=== PATIENT | female | born 1975 | race Caucasian/White ===

== ENCOUNTER → 2017-09-06 | Outpatient (RCR) | payer OTHER ==
--- NOTE | 2017-06-08 16:32 | PT INITIAL EVALUATION ---
MEDICAL DIAGNOSIS: Rheumatoid Arthritis, Cervical Pain TREATMENT DIAGNOSIS: Rheumatoid Arthritis, Cervical Pain, Right Arm Pain and Weakness DATE OF ONSET: 04/08/17 SUBJECTIVE: Denisse is a 41 year-old female presenting to physical therapy with a recent progressive 2 month onset of R arm pain and weakness as well as progressive decreased cervical ROM. Pt reports that her pain seems to radiate down her R arm to the level of the wrist starting from the shoulder and medial elbow. Pt rates pain currently at 2/10, but claims that it gets worse throughout the day and at mid day after use is about 5/10 with decreased strength in that arm so that she cannot picking supervisor objects. Pt denies any neck pain , but reports stiffness that has happed slowly likely related to rheumatoid arthritis condition. Pt reports that the pain in the R arm is always present at a minimal level. In addition pt reports that she is also having some LE dysfunction L>R related to an unknown condition resulting in small nodule formation with associated inflammation in the surrounding area. These nodules are present throughout the distal L>R LE, abdomen B, L breast, and recently developing in the R forearm and R breast with associated sharp pains throughout. Condition is currently unknown for a cause but is being investigated by several specializing physicians. REHAB PROBLEM LIST: Increased Pain Decreased ROM Decreased Strength Decreased Endurance Decreased Function Decreased ADL's Decreased Mobility Decreased Gait PREVIOUS MEDICAL HISTORY: See EMR, RA OBJECTIVE: Pt has B ulnar drift of fingers with swollen joints. B LE are swollen and shiny. Posture: Pt has mild thoracic kyphosis with forward head. ROM: Cervical ROM: ext: full, flexion: moderate restrictions, L rot: 55 degrees , R rot: 40 degrees, L SB: 14 degrees, R SB: 17 degrees. All motions without pain. Shoulder ROM: B flexion/ ext/abd: WFL without pain, B ER: full without pain, IR : R L2 level with pain in anterior shoulder, L T7 without pain. Elbow ROM: WFL without pain flexion and ext Wrist ROM: flexion: B 20 degrees, ext: L 60 degrees, R 30 degrees with pain, ulnar deviation: full without pain, radial: severe limitations B with tightness on the ulnar aspect. Strength: Shoulder MMT: Flexion/Ext: B 5/5 without pain, IR: B 5/5 without pain , ER: L 4/5, R 3+/5 with pain in anterior shoulder, abd: B 4/5. Elbow MMT: flexion: B 5/5, ext: R 4/5, L 4+/5 all without pain Power Plant Manager strength: L 5#, R 5# 3 Finger pinch director of employer services: L 8#, R 6# Palpation: Pt is tender to palpation on the ulnar side of the posterior forearm between the elbow and wrist. Pt is also tender to palpation in the distal attachment of the infraspinatus. Special Tests: Neer's: B (+), Horizontal adduction: (+) R, Drop arm (-), Empty Can (+) B Gait: Pt ambulates with SPC with a slow gait pattern, decreased stride length and wide unsteady JOSUÉ. ASSESSMENT: Pt shows signs and symptoms consistent with R infraspinatus tendinopathy with associated shoulder impingement. Physical therapy is indicated to correct the above listed deficits as well as improve pt function with ADL's. PCP was also contacted for referral to PT to address other pressing deficits related to Denisse's unknown illness including contracture, generalized weakness, pain and instability with gait. Short Term Goals In 3 weeks pt will centralize pain in the R UE to the shoulder only for improved functional strength with ADL's. In 3 weeks pt will be able to perform equal ROM in B shoulders for improved functional ability to perform ADL's. In 6 weeks pt will improve R shoulder strength to equal that of the L side resulting in increased function with ADL's. Patient's Goals Decrease pain in R arm PLAN: Patient to be seen for Manual Therapy/STM/MET Strengthening/condition Ice/Heat Range of Motion Spinal Stabilization Ultrasound Stretching Iontophoresis Neuromuscular Re-ed Closed Chain Program Electrical Stim Posture/Body mechanics Biofeedback Home Exercise Program Mech./Manual Traction Therapeutic Activities 3x/Week for 6 Weeks If you have any questions, comments, or concerns about this report or plan, please contact me at . Thank you, Samia Laguerre, PT, DPT, CLT KHURRAM
--- NOTE | 2017-06-21 17:26 | PT PLAN OF CARE ---
Physician: Phil Cherry DO Patient is being seen: 3x/Week Therapist: Samia Laguerre, PT, DPT, CLT Medical Diagnosis: Rheumatoid Arthritis, Cervical Pain Treatment Diagnosis: Rheumatoid Arthritis, Cervical Pain, Right Arm Pain and Weakness Date of Onset: 04/08/17 Date of Initial Evaluation: 06/08/17 Date patient was last seen: 06/21/17 Number of treatments: 5 Number of cancellations/No shows: 1 INTERVENTIONS: Manual Therapy/STM/MET Strengthening/condition Ice/Heat Range of Motion Spinal Stabilization Ultrasound Stretching Iontophoresis Neuromuscular Re-ed Closed Chain Program Electrical Stim Posture/Body mechanics Biofeedback Home Exercise Program Mech./Manual Traction Therapeutic Activities GOALS: In 3 weeks pt will centralize pain in the R UE to the shoulder only for improved functional strength with ADL's. In 3 weeks pt abe be able to perform equal ROM in B shoulders for improved functional ability to perform ADL's. In 6 weeks pt will improve R shoulder strength to equal that of the L side resulting in increased function with ADL's. PATIENT'S GOAL: Decrease pain in R arm Status of Patient's Goals: 3/3 MET Patient Compliance: Good Prognosis: Fair Reasons for continuing therapy: Pt shows good progression with her R shoulder with full ROM and improved strength with resistance in all motions. Pt is to discharge from PT for her shoulder at this time with intention to focus more on her LE loss of motion and generalized weakness which seems to be worsening. Pt is to continue with her HEP independently for her shoulder at this time having met 3/3 goals. Pt to be re-evaluated at next visit for other conditions. Posture: Pt has mild thoracic kyphosis with forward head. ROM: Cervical ROM: ext: full, flexion: moderate restrictions, L rot: 55 degrees , R rot: 40 degrees, L SB: 14 degrees, R SB: 17 degrees. All motions without pain. Shoulder ROM: B flexion/ ext/abd: WFL without pain, B ER: full without pain, IR: B T5 without pain. Elbow ROM: WFL without pain flexion and ext Wrist ROM: flexion: B 50 degrees, ext: L 40 degrees, R 30 degrees without pain, ulnar deviation: full without pain, radial: severe limitations B with tightness on the ulnar aspect. Strength: Shoulder MMT: all motions 5/5 without pain Crane Manager strength: L 15#, R 16# 3 Finger pinch oxyacetylene burner: B 7# Palpation: Pt is tender to palpation on the ulnar side of the posterior forearm between the elbow and wrist. Special Tests: Neer's: B (-), Horizontal adduction: (-) R, Drop arm (-), Empty Can (-) B If you have any questions or concerns, please feel free to contact me at . Thank you, Samia Laguerre, PT, DPT, CLT MTDD
--- NOTE | 2017-06-23 18:09 | PT INITIAL EVALUATION ---
MEDICAL DIAGNOSIS: Sclerosis of the skin, Generalized Weakness, Lower Extremity Edema/Swelling, Loss of Movement TREATMENT DIAGNOSIS: Sclerosis of the skin, Generalized Weakness, Lower Extremity Edema/Swelling, Loss of Movement DATE OF ONSET: 04/08/17 SUBJECTIVE: Denisse is a 41 year-old female presenting to physical therapy with LE dysfunction L>R related to an unknown etiology resulting in nodule formation with associated inflammation in the surrounding area. These nodules are present throughout the distal L>R LE, abdomen B, L breast, and recently developing in the R forearm and R breast with associated sharp pains throughout. Condition is currently unknown for a cause, but is being investigated by several specializing physicians. Pt reports that the nodules have developed at different times the oldest being on the anterior R leg starting 4 weeks ago and then newest being in the proximal R hamstring, R arm, and B breasts. Pt reports that when the nodules first develop they are super painful and firm and progress with skin changes, swelling and redness, and hypersensitivity. REHAB PROBLEM LIST: Increased Pain Decreased ROM Decreased Strength Decreased Endurance Decreased Function Decreased ADL's Decreased Mobility Decreased Gait PREVIOUS MEDICAL HISTORY: See EMR, RA OBJECTIVE: Pt has B ulnar drift of fingers with swollen joints. B LE are swollen and shiny throughout with few areas of "nodules" on the L LE with peau d 'orange appearance and redness. Posture: Pt has mild thoracic kyphosis with forward head. ROM: Ankle ROM (R,L): DF: 0, lacking 5, PF: 21, 15, Eversion: 13, 9, Inversion: 22,15. Knee ROM (R,L): Flexion: 145, 123, Ext: 0, lacking 5 degrees. Strength: Shoulder MMT: Flexion/Ext: B 5/5 without pain, IR: B 5/5 without pain , ER: L 4/5, R 3+/5 with pain in anterior shoulder, abd: B 4/5. Elbow MMT: flexion: B 5/5, ext: R 4/5, L 4+/5 all without pain Supervisor Home Energy Consultant strength: L 5#, R 5# 3 Finger pinch professor of architecture: L 8#, R 6# All LE MMT not tested at this time secondary to hypersensitivity with pressure but all active against gravity, 3+, or greater. Palpation: Pt is tender to palpation with hypersensitivity throughout the lower limb B into the foot and ankle. Special Tests: Stemmer's Sign (-) B, decreased myofascial mobility on B distal LE. Gait: Pt ambulates with SPC with a slow gait pattern and decreased stride length. Other Objective Findings: LE circumference (R,L): Below knee: 33.5cm, 34cm, calf : 37.5cm, 41.5cm, above malleoli: 26.7cm, 26.5cm, figure 8: 53.5cm, 52.5cm, Dorsum of foot: 22.5, 22.5cm, first digit: 7.2cm, 7.0cm. ASSESSMENT: Pt shows signs and symptoms of generalized edema with tissue fibrosis and hypersensitivity resulting in decreased mobility. Physical therapy is indicated to address the above listed deficits as well as improve pt functional mobility with ADL's. Short Term Goals In 6 weeks pt will reduce circumference of B LE to 80% of current circumference for improved functional mobility with ADL's. In 6 weeks pt will improve ankle mobility to WFL for improved gait and performance of ADL's. In 6 weeks pt will increase L knee ROM to equal to that of the contralateral limb for improved functional performance of ADL's. Patient's Goals Improve ROM and function of B LE. PLAN: Patient to be seen for Manual Therapy/STM/MET Strengthening/condition Ice/Heat Range of Motion Spinal Stabilization Ultrasound Stretching Iontophoresis Neuromuscular Re-ed Closed Chain Program Electrical Stim Posture/Body mechanics Biofeedback Home Exercise Program Mech./Manual Traction Therapeutic Activities 3x/Week for 6 Weeks If you have any questions, comments, or concerns about this report or plan, please contact me at . Thank you, Samia Laguerre, PT, DPT, CLT MTDD
--- NOTE | 2017-08-02 15:15 | PT PLAN OF CARE ---
Physician: Phil Cherry DO Patient is being seen: 3x/week Therapist: Samia Laguerre, PT, DPT, CLT Medical Diagnosis: Rheumatoid Arthritis, Cervical Pain Treatment Diagnosis: Rheumatoid Arthritis, Cervical Pain, Right Arm Pain and Weakness Date of Onset: 04/08/17 Date of Initial Evaluation: 06/08/17 Date patient was last seen: 08/02/17 Number of treatments: 15 Number of cancellations/No shows: 1 INTERVENTIONS: Manual Therapy/STM/MET Strengthening/condition Ice/Heat Range of Motion Spinal Stabilization Ultrasound Stretching Iontophoresis Neuromuscular Re-ed Closed Chain Program Electrical Stim Posture/Body mechanics Biofeedback Home Exercise Program Mech./Manual Traction Therapeutic Activities GOALS: In 6 weeks pt will reduce circumference of B LE to 90% of current circumference for improved functional mobility with ADL's. In 6 weeks pt will improve ankle mobility to WFL for improved gait and performance of ADL's. In 6 weeks pt will increase L knee ROM to equal to that of the contralateral limb for improved functional performance of ADL's. PATIENT'S GOAL: Improve ROM and function of B LE. Status of Patient's Goals: In Progress Patient Compliance: Good Prognosis: Fair Reasons for continuing therapy: Denisse shows good improvements in tissue functional mobility. Ankle ROM shows improvement overall reaching normal limits in dorsiflexion. LE circumference shows decreases on the L>R with recent inflammation on the R, but improved sensitivity and tissue mobility B. Skin texture and color are near normal on the L, but have increased redness on the R medial aspect. Posture: Pt has mild thoracic kyphosis with forward head. ROM: Ankle ROM (R,L): DF: 10, 10, PF: 22, 24, Eversion: 13, 15, Inversion: 36, 23. Knee ROM (R,L): Flexion: 145, 123, Ext: 0, lacking 5 degrees. Strength: Shoulder MMT: Flexion/Ext: B 5/5 without pain, IR: B 5/5 without pain , ER: L 4/5, R 3+/5 with pain in anterior shoulder, abd: B 4/5. Elbow MMT: flexion: B 5/5, ext: R 4/5, L 4+/5 all without pain Oxyacetylene Cutter strength: L 5#, R 5# 3 Finger pinch slubber machine operator: L 8#, R 6# All LE MMT not tested at this time secondary to hypersensitivity with pressure but all active against gravity, 3+, or greater. Palpation: Pt is tender to palpation with hypersensitivity throughout the lower limb B into the foot and ankle. Special Tests: Stemmer's Sign (-) B, decreased myofascial mobility on B distal LE. Gait: Pt ambulates with SPC with a slow gait pattern and decreased stride length. Other Objective Findings: LE circumference (R,L): Below knee: 33.7cm, 33.7cm, calf: 37.5cm, 40cm, above malleoli: 25.5cm, 25.5cm, figure 8: 51.5cm, 50.8cm, Dorsum of foot: 22.3, 22.0cm, first digit: 7.2cm, 6.8cm. If you have any questions or concerns, please feel free to contact me at [phone]. Thank you, Samia Laguerre, PT, DPT, HERMINIAT KHURRAM
--- NOTE | 2017-09-01 14:46 | PT PLAN OF CARE ---
Physician: Phil Cherry DO Patient is being seen: 3x/Week Therapist: Samia Laguerre, PT, DPT, CLT Medical Diagnosis: Rheumatoid Arthritis, Cervical Pain Treatment Diagnosis: Rheumatoid Arthritis, Cervical Pain, Right Arm Pain and Weakness Date of Onset: 04/08/17 Date of Initial Evaluation: 06/08/17 Date patient was last seen: 09/01/17 Number of treatments: 26 Number of cancellations/No shows: 3 INTERVENTIONS: Manual Therapy/STM/MET Strengthening/condition Ice/Heat Range of Motion Spinal Stabilization Ultrasound Stretching Iontophoresis Neuromuscular Re-ed Closed Chain Program Electrical Stim Posture/Body mechanics Biofeedback Home Exercise Program Mech./Manual Traction Therapeutic Activities GOALS: In 6 weeks pt will reduce circumference of B LE to 90% of current circumference for improved functional mobility with ADL's. In 6 weeks pt will improve ankle mobility to WFL for improved gait and performance of ADL's. In 6 weeks pt will increase L knee ROM to equal to that of the contralateral limb for improved functional performance of ADL's. PATIENT'S GOAL: Improve ROM and function of B LE. Status of Patient's Goals: In Progress Patient Compliance: Good Prognosis: Fair Reasons for continuing therapy: Denisse shows good progress with reduced limb circumference, as well as increased ankle ROM and mobility. Pt is now able to ambulate up and down stairs without difficulty or pain. She also shows progress with strengthening of the muscles in the newly available ROM. Lingering swelling and pain remain in the posterior R LE with adhesions and fibrosis remaining B with decreased soft tissue mobility. Further, PT is indicated to continue progress with return to full function. Posture: Pt has mild thoracic kyphosis with forward head. ROM: Ankle ROM (R,L): DF: 15, 15, PF: 45, 50, Eversion: 15, 15, Inversion: 36, 23. Knee ROM (R,L): Flexion: 145, 123, Ext: 0, lacking 5 degrees. Strength: Shoulder MMT: Flexion/Ext: B 5/5 without pain, IR: B 5/5 without pain , ER: L 4/5, R 3+/5 with pain in anterior shoulder, abd: B 4/5. Elbow MMT: flexion: B 5/5, ext: R 4/5, L 4+/5 all without pain Inverform Machine Operator strength: L 5#, R 5# 3 Finger pinch student services representative: L 8#, R 6# All LE MMT not tested at this time secondary to hypersensitivity with pressure but all active against gravity, 3+, or greater. Palpation: Pt is tender to palpation with hypersensitivity throughout the lower limb B into the foot and ankle. Special Tests: Stemmer's Sign (-) B, decreased myofascial mobility on B distal LE. Other Objective Findings: LE circumference (R,L): Below knee: 33.7cm, 33.7cm, calf: 37.5cm, 40cm, above malleoli: 25.5cm, 25.5cm, figure 8: 51.5cm, 50.8cm, Dorsum of foot: 22.3, 22.0cm, first digit: 7.2cm, 6.8cm. If you have any questions or concerns, please feel free to contact me at . Thank you, Samia Laguerre, PT, DPT, CLT KHURRAM
[~2017-09-06] MED LIST: ALPH50CA4 PO; ARGI500C9 PO; ASP325 PO; ASPI-1441 PO; DIPH-1 PO; FURO-45 PO; GABA-549 PO; IBUP600T22 PO; LEFL20TA6 PO; LOPE1LIQ49 PO; LOPE2CAP88 PO; LOR5/325 PO; LORA-1455 PO; MELO-207 PO; META-1 PO; META400T PO; METH2.5T43 PO; MIRT-22 PO; NAP375 PO; NAP500; ORP100 PO; POTA20TA10 PO; TRAM200T2 PO; VENL37.594 PO; VENL75CA4 PO
== END ==
LOC: PT 06-08 09:33
PROVIDERS: ATTEND Internal Medicine
DX: M05.79 Rheumatoid arthritis with rheumatoid factor of multiple sites without organ or systems involvement (principal); M54.2 Cervicalgia; M79.601 Pain in right arm; M62.81 Muscle weakness (generalized); R22.2 Localized swelling, mass and lump, trunk; R22.31 Localized swelling, mass and lump, right upper limb; N63.10 Unspecified lump in the right breast, unspecified quadrant
CPT/HCPCS: 97162

== ENCOUNTER 2017-10-17 09:15 | Outpatient (RCR) | payer OTHER ==
--- NOTE | 2017-09-08 15:15 | PT PLAN OF CARE ---
Physician: Phil Cherry DO Patient is being seen: 2-3x/Week Therapist: Samia Laguerre, PT, DPT, CLT Medical Diagnosis: Rheumatoid Arthritis, Cervical Pain Treatment Diagnosis: Rheumatoid Arthritis, Cervical Pain, Right Arm Pain and Weakness Date of Onset: 04/08/17 Date of Initial Evaluation: 06/08/17 Date patient was last seen: 09/08/17 Number of treatments: 28 Number of cancellations/No shows: 3 INTERVENTIONS: Manual Therapy/STM/MET Strengthening/condition Ice/Heat Range of Motion Spinal Stabilization Ultrasound Stretching Iontophoresis Neuromuscular Re-ed Closed Chain Program Electrical Stim Posture/Body mechanics Biofeedback Home Exercise Program Mech./Manual Traction Therapeutic Activities GOALS: In 6 weeks pt will reduce circumference of B LE to 90% of current circumference for improved functional mobility with ADL's. MET In 6 weeks pt will improve ankle mobility to WFL for improved gait and performance of ADL's. In Progress In 6 weeks pt will increase L knee ROM to equal to that of the contralateral limb for improved functional performance of ADL's. MET PATIENT'S GOAL: Improve ROM and function of B LE. Status of Patient's Goals: 2/3 MET Patient Compliance: Good Prognosis: Fair Reasons for continuing therapy: Denisse continues to show progress with gains in ankle ROM and strength. Circumferential reductions are evident throughout both LE with lingering swelling present in the R LE with recent inflammatory episode occurring. Hypersensitivity is no longer present in B legs with skin mobility progressively increasing B in the shins, ankles and feet. Lingering deficits include soft tissue restrictions into plantar flexion B and L inversion. Other soft tissue restrictions are present from skin fibrosis across B shins from inflammatory process. Further PT is indicated to make progress in these remaining areas. Functionally pt is now able to ambulate up and down stairs, as well a walk prolonged distances without any difficulty. Posture: Pt has mild thoracic kyphosis with forward head. ROM: Ankle ROM (R,L): DF: 15, 18, PF: 34, 40, Eversion: 15, 12, Inversion: 35, 17. Knee ROM (R,L): Flexion: 145, 140, Ext: 3, 1 Strength: Shoulder MMT: Flexion/Ext: B 5/5 without pain, IR: B 5/5 without pain , ER: L 4/5, R 3+/5 with pain in anterior shoulder, abd: B 4/5. Elbow MMT: flexion: B 5/5, ext: R 4/5, L 4+/5 all without pain Service Order Clerk strength: L 5#, R 5# 3 Finger pinch systematic theology professor: L 8#, R 6# LE MMT: Ankle: DF: B 5/5, PF: R 4/5, L 4-/5, Eversion: R 4/5, L 4+/5, Inversion : B 5/5 Special Tests: Stemmer's Sign (-) B, decreased myofascial mobility on B shins. Other Objective Findings: LE circumference (R,L): Below knee: 32.3cm, 33.5cm, calf: 40.2cm, 38.7cm, above malleoli: 25.5cm, 24.5cm, figure 8: 50.1cm, 48.7cm, Dorsum of foot: 21.6, 21.7cm, first digit: 7.0cm, 6.5cm. If you have any questions or concerns, please feel free to contact me at [phone]. Thank you, Samia Laguerre, PT, DPT, CLT MTDD
--- NOTE | 2017-10-17 11:50 | PT PLAN OF CARE ---
Physician: Phil Cherry DO Patient is being seen: 1x/Week Therapist: Samia Laguerre, PT, DPT, CLT Medical Diagnosis: Rheumatoid Arthritis, Cervical Pain Treatment Diagnosis: Rheumatoid Arthritis, Cervical Pain, Right Arm Pain and Weakness Date of Onset: 04/08/17 Date of Initial Evaluation: 06/08/17 Date patient was last seen: 10/17/17 Number of treatments: 34 Number of cancellations/No shows: 0 INTERVENTIONS: Manual Therapy/STM/MET Strengthening/condition Ice/Heat Range of Motion Spinal Stabilization Ultrasound Stretching Iontophoresis Neuromuscular Re-ed Closed Chain Program Electrical Stim Posture/Body mechanics Biofeedback Home Exercise Program Mech./Manual Traction Therapeutic Activities GOALS: In 6 weeks pt will reduce circumference of B LE to 90% of current circumference for improved functional mobility with ADL's. MET In 6 weeks pt will improve ankle mobility to WFL for improved gait and performance of ADL's. MET In 6 weeks pt will increase L knee ROM to equal to that of the contralateral limb for improved functional performance of ADL's. MET PATIENT'S GOAL: Improve ROM and function of B LE. Status of Patient's Goals: 3/3 MET Patient Compliance: Good Prognosis: Fair Reasons for discharge from therapy: Denisse is to discharge from physical therapy at this time secondary to completion of all of her functional goals. Pt has been instructed in maintenance of edema with self MLD treatment and is also currently independent in a home exercise program to maintain mobility and motion gains. Pt is to be evaluated further by the [facility] in [place] in December for further diagnosis and treatment of condition and is to follow up with PT if any changes occur between discharge and that time. Posture: Pt has mild thoracic kyphosis with forward head. ROM: Ankle ROM (R,L): DF: 25, 25, PF: 51, 50, Eversion: 16, 17, Inversion: 30, 33. Knee ROM (R,L): Flexion: 145, 140, Ext: 3, 1 Strength: Shoulder MMT: Flexion/Ext: B 5/5 without pain, IR: B 5/5 without pain , ER: L 4/5, R 3+/5 with pain in anterior shoulder, abd: B 4/5. Elbow MMT: flexion: B 5/5, ext: R 4/5, L 4+/5 all without pain Circulation Man strength: L 5#, R 5# 3 Finger pinch derrick worker: L 8#, R 6# LE MMT: Ankle: DF: B 5/5, PF: R 4/5, L 4-/5, Eversion: R 4/5, L 4+/5, Inversion : B 5/5 Special Tests: Stemmer's Sign (-) B, decreased myofascial mobility on B shins. Other Objective Findings: LE circumference (R,L): Below knee: 33.5cm, 33.0cm, calf: 39.5cm, 39cm, above malleoli: 24cm, 23.4cm, figure 8: 49.5cm, 48.2cm, Dorsum of foot: 21.0, 21.5cm, first digit: 7.0cm, 7.0cm. If you have any questions or concerns, please feel free to contact me at [phone]. Thank you, Samia Laguerre, PT, DPT, CLT TERRYD
== END 2017-10-17 15:02 | disposition home or self-care (01) ==
LOC: PT 09:15
PROVIDERS: ATTEND Internal Medicine
DX: M05.79 Rheumatoid arthritis with rheumatoid factor of multiple sites without organ or systems involvement (principal); M54.2 Cervicalgia; M79.601 Pain in right arm; M62.81 Muscle weakness (generalized); R22.2 Localized swelling, mass and lump, trunk; R22.31 Localized swelling, mass and lump, right upper limb; N63.10 Unspecified lump in the right breast, unspecified quadrant

== ENCOUNTER → 2017-11-09 | Outpatient (CLI) | payer OTHER ==
--- NOTE | 2017-11-10 09:04 | RADIOLOGY IMAGING REPORT ---
FACILITY: [facility] - [place] PATIENT NAME: DANAY SINGH : [id number] MR: [id number] V: [id number] EXAM DATE: ORDERING PHYSICIAN: KATHLEEN BOOTH TECHNOLOGIST: Yasmine Randhawa PROCEDURE:US LEFT BREAST COMPLETE COMPARISON:Prior Left breast Ultrasound of 04/27/17. INDICATIONS:Monitor L. breast lump, 6 MO F/U FINDINGS: Multiple cysts are again seen throughout the breasts. In the 12 o'clock position Left breast 1cm from the nipple there is an 8.6 x 9 x 7.1mm ovoid hypoechoic mass with acoustic shadowing. This mass was not demonstrated on the prior ultrasound. In the 1 o'clock position of the Left breast 2cm from the nipple there is a 7.4mm cyst with some internal echoes which may represent internal debris. There is no acoustic shadowing. The previously noted well circumscribed ovoid hypoechoic nodule in the 2 o'clock position of the Left breast 2cm from the nipple is unchanged in size and measures 6.2 x 6.8 x 5mm. There is however an additional hypoechoic nodule just anterior to the chest wall in the 2 o'clock position of the Left breast 4cm from the nipple measuring 6.1 x 6 x 6.2cm with some acoustic shadowing. There are several ovoid fatty replaced lymph nodes in the Left axilla with a benign appearing morphology. DIAGNOSTIC CATEGORY 4--SUSPICIOUS FOR MALIGNANCY. RECOMMENDATIONS: ULTRASOUND-GUIDED CORE BIOPSY: LEFT BREAST. IMPRESSION: BIRADS 4: Suspicious for malignancy Ultrasound guided core biopsy is recommended of the new hypoechoic nodule in the 12 o'clock position of the Left breast 1cm from the nipple and the new hypoechoic nodule 2 o'clock position of the Left breast just anterior to the chest wall 4cm from the nipple. Please see Today's Left breast mammogram for additional mammographic recommendations. Dictated by: Angela Queen M.D. on 11/09/2017 at 16:51 Transcribed by: CHANTALE on 11/10/2017 at 8:33 Approved by: Angela Queen M.D. on 11/10/2017 at 9:03 [facility]
--- NOTE | 2017-11-10 09:04 | RADIOLOGY IMAGING REPORT ---
FACILITY: [facility] [place] PATIENT NAME: DANAY SINGH : [id number] MR: [id number] V: [id number] EXAM DATE: ORDERING PHYSICIAN: KATHLEEN BOOTH TECHNOLOGIST: Smita Cruz PROCEDURE:LEFT DIGITAL DIAGNOSTIC MAMMOGRAM WITH CAD ASSISTED INTERPRETATION & 3D TOMOSYNTHESIS COMPARISON:Prior mammograms 04/27/17 & 07/23/08 INDICATIONS:Monitor L. breast lump, 6 MO F/U FINDINGS: Extremely dense heterogeneous fibroglandular tissue is seen throughout the Left breast. There are numerous scattered calcifications seen throughout the Left breast many appear to represent layering suggesting milk of calcium deposits. There is however a new tightly clustered collection of round calcifications in the upper outer quadrant of the Left breast in Zone 2. Given the interval accurance biopsy is recommended. The patient stated her hesitancy to try stereotactic breast biopsy due to chronic muscle spasm. It was undecided a hook wire localization with surgical excision would be the best approach. DIAGNOSTIC CATEGORY 4--SUSPICIOUS FOR MALIGNANCY. RECOMMENDATIONS: SURGICAL BIOPSY COORDINATED WITH MAMMOGRAM HOOKWIRE LOCALIZATION: LEFT BREAST. IMPRESSION: BIRADS 4: Suspicious for malignancy Surgical excision aided by med graphically guided needle hook wire localization of the new tightly clustered round calcifications in the upper outer quadrant of the Left breast Zone 2 recommend for further evaluation. Please see Today's Left breast Ultrasound which also recommends 2 Ultrasound guided biopsies of 2 new solid masses in the Left breast. Dictated by: Angela Queen M.D. on 11/09/2017 at 16:55 Transcribed by: CHANTALE on 11/10/2017 at 8:55 Approved by: Angela Queen M.D. on 11/10/2017 at 9:03 [facility]
== END ==
LOC: MAMO 07:43
PROVIDERS: ATTEND Surgery
DX: N60.02 Solitary cyst of left breast (principal); N63.21 Unspecified lump in the left breast, upper outer quadrant
CPT/HCPCS: 77061; 77065

== ENCOUNTER 2017-11-14 11:29 | Outpatient (RCR) | payer OTHER ==
[2017-11-14 12:37] LABS: INR 1.05
--- NOTE | 2017-11-16 10:44 | RADIOLOGY IMAGING REPORT ---
FACILITY: [facility] PATIENT NAME: DANAY SINGH : [id number] MR: [id number] V: [id number] EXAM DATE: ORDERING PHYSICIAN: KATHLEEN BOOTH TECHNOLOGIST: Rusty Edmonds PROCEDURE: ULTRASOUND GUIDED LEFT BREAST BIOPSY COMPARISON: None. INDICATIONS: NEW NODULES IN THE 12 AND 2 O'CLOCK POSITIONS OF THE LEFT BREAST. FINDINGS: Informed consent was obtained. The patient's Left breast was prepped and draped in the usual sterile fashion. Local anesthesia was accomplished with 1% lidocaine. 2 14 Gauge core biopsies were obtained through the hypoechoic nodule in the 12 o'clock position of the Left breast. The following 2 biopsies the nodule was barely perceptible. A biopsy clip was placed in the biopsy site. 2 14 Gauge core biopsies were then obtained through the hypoechoic nodule 2 o'clock position of the Left breast 4cm from the nipple. The following 2 biopsies this nodule was also barely perceptible. A biopsy clip was placed in the biopsy site. These samples were sent to Pathology for processing. The procedure was accomplished without apparent complication. IMPRESSION: 1. Successful sonographically guided 2 Left breast biopsies. Pathology results are pending. Dictated by: Angela Queen M.D. on 11/15/2017 at 17:34 Transcribed by: CHANTALE on 11/16/2017 at 8:54 Approved by: Angela Queen M.D. on 11/16/2017 at 10:43 [facility]
--- NOTE | 2017-11-16 10:44 | RADIOLOGY IMAGING REPORT ---
[facility] PATIENT NAME: DANAY SINGH : [id number] MR: [id number] V: [id number] EXAM DATE: [id number] ORDERING PHYSICIAN: KATHLEEN BOOTH TECHNOLOGIST: Smita Cruz PROCEDURE:LEFT DIGITAL DIAGNOSTIC MAMMOGRAM COMPARISON:Prior mammograms 11/09/17, 04/27/17, 07/23/08. INDICATIONS:FOR CLIP PLACEMENT POST 2 LEFT BREAST BIOPSIES. FINDINGS: Dense heterogeneous fibroglandular tissue is seen throughout the Left breast. There are 2 biopsy clips seen in the upper outer quadrant of the Left breast. No other interval changes are seen. Pathology results are pending for Today's 2 Left breast biopsies. IMPRESSION: 2 biopsy clips are seen in the upper outer quadrant of the Left breast from Today's Ultrasound guided breast biopsies. Pathology results are pending. Dictated by: Angela Queen M.D. on 11/15/2017 at 17:35 Transcribed by: CHANTALE on 11/16/2017 at 9:00 Approved by: Angela Queen M.D. on 11/16/2017 at 10:43 [facility]
[2017-11-22] MEDS ORDERED: MELO-207 PO (14:00)
== END 2017-11-15 18:00 | disposition home or self-care (01) ==
LOC: LAB 11:29 → US 11-15 18:00
PROVIDERS: ATTEND Surgery
DX: N63.20 Unspecified lump in the left breast, unspecified quadrant (principal); R92.8 Other abnormal and inconclusive findings on diagnostic imaging of breast
CPT/HCPCS: 19083; 36415; 77061; 77065; 85610; 88305; 88344

== ENCOUNTER 2017-11-30 00:30 | Day surgery (SDC) | payer OTHER ==
--- NOTE | 2017-11-29 09:31 | RADIOLOGY IMAGING REPORT ---
FAC[place]: [facility] [place] PATIENT NAME: Denisse Villasenor : 1975 MR: [id number] V: [id number] EXAM DATE: ORDERING PHYSICIAN: NOEL DOMINGUEZ TECHNOLOGIST: Location: [facility] - [place] Patient: eDnisse Villasenor : 1975 Visit/Account:[id number] Date of Sevice: 11/29/2017 Cervical spine with flexion/extension views, three views. HISTORY: Rheumatoid arthritis, anesthesia protocol. COMPARISON: None. Small marginal osteophytes and mild joint space narrowing are present in the atlantoaxial joint. No abnormal subluxation occurs during flexion and extension. Minimal loss of disc height is present at C2-3, C3-4, and C4-5. During flexion, the C4, C5, and C6 vertebral bodies each sublux anteriorly by 1-2 mm, probably degenerative. The posterior elements are unremarkable. No prevertebral soft tissue swelling. No acute fractures. No bony erosions are identified. IMPRESSION: Mild multilevel degenerative disc disease. Mild atlantoaxial osteoarthritis. Report Dictated By: Juanito Stewart MD at 11/29/2017 9:22 AM Report E-Signed By: Juanito Stewart MD at 11/29/2017 9:27 AM WSN:[email or web address]
[~2017-11-30] VITALS: Ht 162.6 cm; Wt 67.6 kg
[~2017-11-30 00:30] MED LIST changes: +ASPI-757 PO; +FOLI-68 PO; +MAGN100T5 PO; +[UNRECOGNIZED DRUG - CODE] PO
[2017-11-30] MEDS ORDERED: LIDOCAINE MPF 1% 5 ML VIAL ONE (11:05)
[2017-11-30 11:07] VITALS: BP 107/74
[2017-11-30] MEDS ORDERED: NORMOSOL R SOLN(*) 1000 ML BAG 1,000 ML IV PRN (11:30)
[2017-11-30] MEDS ORDERED: FAMOTIDINE 20 MG TAB PO ONE (11:30)
[2017-11-30] MEDS ORDERED: ceFAZolin(*) 1 GM VIAL 1 GM in NS(*) 0.9% 100 ML ADDVANT BAG 100 ML IVPB ONE (11:30)
[2017-11-30] MEDS ORDERED: MIDAZOLAM 2 MG/2 ML VIAL IVP PRN (11:30)
[2017-11-30] MEDS ORDERED: LIDOCAINE/SOD BICARB 8.4% SYR ID ONE (11:30)
[2017-11-30] MEDS ORDERED: ROPIVACAINE 0.5% 20 ML VIAL ONE (15:40)
[2017-11-30] MEDS ORDERED: fentaNYL CITR 100 MCG/2 ML AMP ONE ×2 (15:56→17:32)
--- NOTE | 2017-11-30 16:15 | RADIOLOGY IMAGING REPORT ---
FACILITY: [facility] - [place], [place] PATIENT NAME: DANAY SINGH : [id number] MR: [id number] V: [id number] EXAM DATE: [id number] ORDERING PHYSICIAN: KATHLEEN BOOTH TECHNOLOGIST: Smita Cruz PROCEDURE: NEEDLE LOCALIZATION LEFT BREAST COMPARISON: Mammogram 11/15/2017. INDICATIONS: Patient with indeterminate cluster microcalcifications Left breast. Localization for wire guided exc. FINDINGS: Prior to the exam, the risks and benefits of a mammogram technique wire localization Left breast calcifications was discussed with the patient and informed consent was obtained. The patient was placed at the mammogram unit, and CC and MLO images were obtained. The scan was prepped and draped in the normal sterile fashion. A grid was placed over the breast, in a CC position. Using grid coordinates, 1% lidocaine was locally injected at the target site for the calcifications. A 9cm needle was advanced in a craniocaudal direction overlying the calcifications. The image was then switched to a mediolateral image, which demonstrated that the needle was just short in a craniocaudal direction to the calcifications. The needle was therefore advanced approximately 2cm. Another mediolateral image was obtained, which demonstrated the needle was in good position with respect to the calcifications. A wire was then advanced, and the needle was removed. A post wire placement mediolateral and CC image demonstrated the wire was in good position with respect to the calcifications. The wire was then secured at the skin. IMPRESSION: Left breast wire localization of the calcifications using a mammogram and grid technique. There were no immediate post procedure complications. Dictated by: Salazar Koehler M.D. on 11/30/2017 at 14:56 Transcribed by: CHANTALE on 11/30/2017 at 16:05 Approved by: Salazar Koehler M.D. on 11/30/2017 at 16:13 [facility]
[2017-11-30] MEDS ORDERED: OXYC-854 PO (17:13)
[2017-11-30] MEDS ORDERED: DOCU-416 PO (17:13)
[2017-11-30] MEDS ORDERED: ONDANSETRON 4 MG/2 ML VIAL ONE ×2 (17:17→17:27)
--- NOTE | 2017-11-30 17:21 | Short(Outpt) Discharge Summary ---
Discharge Summary Reason for Hosp/Final Diag: (1) Microcalcification of left breast on mammogram Status: Chronic Hospital Course & Plan: Left breast wire-guided lesion excision completed without problems. Departure Discharge to: Home, Self Care Discharge Instructions Home Meds Active Scripts Docusate Sodium (COLACE) 100 Mg Capsule, 1 CAP PO BID, #30 CAP 0 Refills TAKE WITH A FULL GLASS OF WATER Prov:KATHLEEN BOOTH MD 11/30/17 Oxycodone Hcl/Acet 5/325 Mg (ENDOCET 5-325 TABLET) 1 Each Tablet, 1-2 TAB PO Q4H Y for PAIN, #20 TAB 0 Refills Prov:KATHLEEN BOOTH MD 11/30/17 Meloxicam (MELOXICAM) 15 Mg Tablet, 15 MG PO QDAY Y for PAIN, #90 TAB 1 Refill Prov:KATHLEEN BOOTH MD 11/22/17 Gabapentin (GABAPENTIN) 300 Mg Capsule, 1 CAP PO TID, #270 CAPSULE 1 Refill Prov:BO CENTENO MD 10/13/17 Mirtazapine (MIRTAZAPINE) 15 Mg Tablet, 15 MG PO QHS, #90 TAB 1 Refill Prov:BO CENTENO MD 07/11/17 Venlafaxine Hcl (VENLAFAXINE HCL ER) 75 Mg Cap.er.24h, 75 MG PO QDAY, #90 TAB 1 Refill Prov:BO CENTENO MD 06/15/17 Reported Medications Magnesium Glycinate (MAG GLYCINATE) 100 Mg Tablet, 400 MG PO BID 11/28/17 Folic Acid (FOLIC ACID) 1 Mg Tablet, 1 MG PO QDAY, TAB 11/28/17 Metaxalone (Metaxalone) 400 Mg Tablet, 1 TAB PO BID 11/28/17 Aspirin (ASPIRIN) 325 Mg Tablet, 325 MG PO QDAY, TAB 11/24/17 Methotrexate Sodium (METHOTREXATE) 2.5 Mg Tablet, 15 MG PO QWEEK 07/05/17 Discontinued Reported Medications Magnesium Gluconate (MAGNESIUM GLUCONATE) 27 Mg Tablet, 27 MG PO QDAY 11/24/17 Folic Acid (FOLIC ACID) Unknown Strength Tablet, PO QDAY, TAB 11/24/17 Discontinued Scripts Metaxalone (Metaxalone) 400 Mg Tablet, 400 MG PO BID Y for MUSCLE SPASMS, #90 TAB 11 Refills Prov:BO CENTENO MD 09/22/17 Follow up Referrals: General Surgery - 12/18/17 @ Surgery, General with Kathleen Booth Md You have a follow up appointment scheduled with Dr. Booth on 12/18/17, at 4:30pm. Diet: Regular Activity: As Tolerated Special Instructions: You may remove the white surgical dressing on 12/02/17, then you can shower. After showering, leave the incision open to air but leave the steristrips in place until they fall off on their own. Do not immerse the incision for 2 weeks. KATHLEEN BOOTH MD November 30, 2017 17:21
[2017-11-30] MEDS ORDERED: DEXAMETHASONE SOD PHOS 10MG/ML ONE (17:27)
[2017-11-30] MEDS ORDERED: PROPOFOL EMUL(*) 10MG/ML 20 ML 40 ML ONE (17:27)
--- NOTE | 2017-11-30 17:27 | Post Operative Progress Note ---
Post Operative Progress Note Date: November 30, 2017 Time: 17:21 Surgeon: Javi Dictation number: [id number] Anesthesia: LMA by Dr. Traore Pre-Op Diagnosis: Left breast microcalcifications on mammogram Post-Op Diagnosis: MAXWELL Findings: Looked like good specimen on specimen mammo when compared to preop imaging Procedure(s): Left breast wire guided excisional biopsy Specimen Removed:(May be N/A): Left breast lesion Complications: None Fluids: See anesthesia record Estimated Blood Loss: Minimal Date OP Note Dictated: November 30, 2017 Time OP Note Dictated: 17:23 KATHLEEN BOOTH MD November 30, 2017 17:27
[2017-11-30 18:15] VITALS: BP 106/77
[2017-11-30 18:43] VITALS: BP 115/79
[2017-11-30 18:44] VITALS: BP 109/79
--- NOTE | 2017-11-30 20:53 | OPERATIVE REPORT 1 ---
EVENT DATE: November 30, 2017 SURGEON: Sim Caldwell MD ANESTHESIOLOGIST: Delvis Traore MD ANESTHESIA: LMA. PREOPERATIVE DIAGNOSIS Left breast microcalcifications on mammogram. POSTOPERATIVE DIAGNOSIS Left breast microcalcifications on mammogram. PROCEDURE PERFORMED Left breast wire-guided excisional biopsy. COMPLICATIONS None. CONDITION Stable. BLOOD LOSS Minimal. SPECIMENS Left breast lesion. FINDINGS The specimen looked good when compared on mammogram to the preop imaging. The wire was in the middle of the specimen, and where the calcifications were relative to the hook were right in the middle of the specimen. INDICATIONS This is a 42-year-old female who was referred to my office with a new finding of microcalcifications in the left breast. They were not amenable to stereotactic biopsy, and so it was recommended to have wire-guided excision of this lesion. DESCRIPTION OF PROCEDURE Patient was brought to the operating room and placed supine on the operating table. LMA anesthesia was administered, and her left breast was prepped and draped in a sterile fashion. Timeout was completed. I had previously reviewed the preop wire placement images with the radiologist and got an idea where the lesion was relative to the wire coming out of the skin, and so I marked the skin over this area and anesthetized it 0.5% ropivacaine plain. I made a curvilinear incision parallel with Cathy lines and dissected through the dermis and subcutaneous fat. I then tracked over to the wire, pulled it into the wound, and then dissected down along the wire until I got to the first marker on the wire. I then flared out my dissection and then removed a column of tissue that was about [address] around the tip of the wire and then removed the specimen from the wound. The wound was packed with moist gauze , and the specimen was placed on a grid. I walked it over to Radiology and personally watched as the mammogram was performed. I reviewed them with the radiologist. He thought it was a good resection based on comparison with preop imaging and the configuration of the wire. I then went back to the operating room, scrubbed back in, and irrigated and dried the wound. I then closed the subcutaneous pocket with running 3-0 Vicryl sutures, and the skin was closed with interrupted 3-0 Vicryl deep dermal sutures and 4-0 Monocryl running subcuticular sutures. Skin was cleaned and dried, and Steri-Strips were applied , followed by a sterile surgical dressing. The patient was awakened and LMA removed. She was transported to the recovery room in stable condition having tolerated the procedure without any apparent problems. KHURRAM
--- NOTE | 2017-12-05 08:55 | RADIOLOGY IMAGING REPORT ---
FACILITY: [facility] PATIENT NAME: DANAY SINGH : [id number] MR: [id number] V: [id number] EXAM DATE: ORDERING PHYSICIAN: KATHLEEN BOOTH TECHNOLOGIST: Smita Cruz PROCEDURE: BREAST SPECIMEN COMPARISON: None. INDICATIONS: SURGICAL BIOPSY OF A LEFT BREAST LESION. FINDINGS: The specimen & wire are intact. There are several clusters of very subtle calcifications. These likely represent the target calcifications from the prior mammogram. RECOMMENDATIONS: CONCLUSION: Breast specimen demonstrates calcifications & an intact wire. Dictated by: Salazar Koehler M.D. on 11/30/2017 at 16:55 Transcribed by: BEBETO on 12/01/2017 at 6:48 Approved by: Angela Queen M.D. on 12/05/2017 at 8:54 [facility]
== END 2017-11-30 18:15 | disposition home or self-care (01) ==
LOC: OR 00:30
PROVIDERS: ATTEND Surgery
DX: R92.0 Mammographic microcalcification found on diagnostic imaging of breast (principal)
CPT/HCPCS: 19125; 19283; 36415; 72040; 88305; J0690; J1100; J2001; J2250; J2405; J2704; J2795; J3010; J7050; 82310; 82374; 82435; 82565; 82947; 84132; 84295; 84520; 88344

== ENCOUNTER → 2018-01-23 | Outpatient (CLI) | payer OTHER ==
[~2018-01-23] MED LIST changes: +DOCU-416 PO; +OXYC-854 PO
== END ==
LOC: LAB 06:37
PROVIDERS: ATTEND Emergency Medicine
DX: M06.9 Rheumatoid arthritis, unspecified (principal)
CPT/HCPCS: 36415; 82465; 83718; 84478

== ENCOUNTER → 2018-02-02 | Outpatient (CLI) | payer OTHER ==
--- NOTE | 2018-02-02 16:30 | RADIOLOGY IMAGING REPORT ---
FACILITY: [facility] PATIENT NAME: Denisse Villasenor : 1975 MR: [id number] V: [id number] EXAM DATE: ORDERING PHYSICIAN: BO CENTENO TECHNOLOGIST: Location: [facility] - [place], [place] Patient: Denisse Villasenor : 1975 Visit/Account:[id number] Date of Sevice: 02/02/2018 EXAMINATION: Ultrasound thyroid HISTORY: Thyroid goiter on old chest CT. COMPARISON: CT chest report from 07/16/2008. FINDINGS: Thyroid size: Right lobe: 4.9 x 1.9 x 1.3 cm Left lobe: 3.7 x 1.0 x 1.0 cm Isthmus: 0.3 cm Thyroid heterogeneity: Mildly heterogeneous. Thyroid vascularity: Mildly hypervascular. Thyroid nodules: Right lobe: * There are a few tiny subcentimeter cysts. Left lobe: * None discrete. Isthmus: * None discrete. Additional findings: None. IMPRESSION: Mildly heterogeneous and hypervascular thyroid which is borderline enlarged. This could be due to mu ltinodular goiter or chronic thyroiditis. No thyroid nodules. REFERENCE: 2015 [place] [employer] Management Guidelines for Adult Patients with Thyroid Nodules and D ifferentiated Thyroid Cancer: The [place] [employer] Guidelines Task Force on Thyroid Nodul es and Differentiated Thyroid Cancer. SONOGRAPHIC PATTERNS: * Benign: Purely cystic nodules (no solid component); estimated risk of malignancy <1 percent; no bi opsy recommended. * Very Low Suspicion: Spongiform or partially cystic nodules without any of the sonographic features described in low, intermediate, or high suspicion patterns; estimated risk of malignancy <3 percent; consider FNA at > 2 cm (Observation without FNA is also a reasonable option). * Low Suspicion: Isoechoic or hyperechoic solid nodule, or partially cystic nodule with eccentric so lid areas, without microcalcification, irregular margin or ETE (extra-thyroidal extension), or taller than wide shape; estimated risk of malignancy 5-10 percent; recommend FNA at >1.5 cm. * Intermediate Suspicion: Hypoechoic solid nodule with smooth margins without microcalcifications, E TE (extra-thyroidal extension), or taller than wide shape; estimated risk of malignancy 10-20 percent ; recommend FNA at > 1 cm. * High Suspicion: Solid hypoechoic nodule or solid hypoechoic component of a partially cystic nodule with one or more of the following features: irregular margins (infiltrative, microlobulated), microc alcifications, taller than wide shape, rim calcifications with small extrusive soft tissue component, evidence of ETE (extra-thyroidal extension); estimated risk of malignancy >70-90 percent; recommend FNA at > 1 cm. NOTES: * Although a sonographically suspicious subcentimeter thyroid nodule without evidence of extrathyroi wesley extension or sonographically suspicious lymph nodes may be observed with close sonographic follow -up rather than pursuing immediate FNA, patient age and preference may modify decision-making. * A > 50% interval increase in nodule volume and/or development of new suspicious sonographic featur es are felt to be a valid reasons for potential re-aspiration of a nodule previously shown to have be nign FNA cytology. Report Dictated By: Addie Vaughan MD at 02/02/2018 4:25 PM Report E-Signed By: Addie Vaughan MD at 02/02/2018 4:27 PM WSN:[id number]
== END ==
LOC: US 00:48
PROVIDERS: ATTEND Emergency Medicine
DX: E04.2 Nontoxic multinodular goiter (principal)
CPT/HCPCS: 76536

== ENCOUNTER → 2018-07-11 | Outpatient (CLI) | payer OTHER ==
[~2018-07-11] MED LIST changes: +FLU60VIA41 IM
--- NOTE | 2018-07-11 16:27 | RADIOLOGY IMAGING REPORT ---
FACILITY: [facility] - [place] PATIENT NAME: DANAY SINGH : [id number] MR: [id number] V: [id number] EXAM DATE: ORDERING PHYSICIAN: KATHLEEN BOOTH TECHNOLOGIST: Smita Cruz PROCEDURE:BILATERAL DIAGNOSTIC DIGITAL MAMMOGRAM WITH CAD ASSISTED INTERPRETATION & 3D TOMOSYNTHESIS COMPARISON:Prior mammograms 11/30/17, 11/15/17, 11/09/17, 04/27/17. INDICATIONS:CALCIFICATIONS FINDINGS: The breasts are heterogeneously dense which can obscure small masses. The parenchymal pattern has remained stable allowing for difference in mammographic technique & patient positioning. There are 3 surgical clips now seen in the upper outer quadrant of the Left breast in the location of previously noted tightly clustered calcifications. Those calcifications are no longer seen. Other scattered calcifications throughout both breasts have remained stable. 2 biopsy clips from previous Ultrasound guided core biopsies are also again seen in the upper outer quadrant of the Left breast. DIAGNOSTIC CATEGORY 2--BENIGN FINDING. RECOMMENDATIONS: ROUTINE MAMMOGRAM AND CLINICAL EVALUATION. IMPRESSION: BIRADS 2: Benign finding. Mammograms appear stable other than interval removal of the previously calcifications upper outer quadrant of the Left breast. Dictated by: Angela Queen M.D. on 07/11/2018 at 10:33 Transcribed by: CHANTALE on 07/11/2018 at 11:03 Approved by: Angela Queen M.D. on 07/11/2018 at 16:26 [facility]
== END ==
LOC: MAMO 02:47
PROVIDERS: ATTEND Surgery
DX: Z09 Encounter for follow-up examination after completed treatment for conditions other than malignant neoplasm (principal)
CPT/HCPCS: 77062; 77066

== ENCOUNTER → 2018-08-20 | Outpatient (CLI) | payer OTHER ==
[2018-08-20 07:16] LABS: PLATELET COUNT, AUTOMATED 330 K/uL (150-450)
== END ==
LOC: LAB 06:57
PROVIDERS: ATTEND Physician Assistant
DX: M06.9 Rheumatoid arthritis, unspecified (principal); Z79.899 Other long term (current) drug therapy
CPT/HCPCS: 36415; 82565; 84450; 85025; 85651

== ENCOUNTER → 2018-08-21 | Outpatient (CLI) | payer OTHER | LOC: LAB 16:25 | PROVIDERS: ATTEND Emergency Medicine | DX: Z02.9 Encounter for administrative examinations, unspecified (principal) ==

== ENCOUNTER → 2018-08-21 | Outpatient (REF) | payer OTHER | LOC: ZZSENDIN 16:19 | PROVIDERS: ATTEND Emergency Medicine | DX: D64.9 Anemia, unspecified (principal) | CPT/HCPCS: 83540; 83550 ==

== ENCOUNTER 2018-10-02 01:48 | Observation (INO) | payer OTHER ==
--- NOTE | 2018-08-21 08:19 | EKG ---
FACILITY: [facility] PATIENT NAME: DANAY SINGH : [id number] MR: [id number] V: [id number] EXAM DATE: ORDERING PHYSICIAN: DAQUAN BECKFORD TECHNOLOGIST: JER Colon Reason : PREOP-KNEE Blood Pressure : / mmHG Vent. Rate : 070 BPM Atrial Rate : 070 BPM P-R Int : 130 ms QRS Dur : 088 ms QT Int : 394 ms P-R-T Axes : 016 058 037 degrees QTc Int : 425 ms Normal sinus rhythm Normal ECG No previous ECGs available Confirmed by Davi Infante ([id number]) on 08/21/2018 9:44:09 PM Referred By: Confirmed By:Davi Simmons
[2018-08-21 08:28] LABS: PLATELET COUNT, AUTOMATED 350 K/uL (150-450)
--- NOTE | 2018-08-21 08:54 | RADIOLOGY IMAGING REPORT ---
FACILITY: [facility] PATIENT NAME: Denisse Villasenor : 1975 MR: [id number] V: [id number] EXAM DATE: ORDERING PHYSICIAN: DAQUAN BECKFORD TECHNOLOGIST: Location: [facility] Patient: Denisse Villasenor : 1975 Visit/Account:[id number] Date of Sevice: 08/21/2018 CERVICAL SPINE 2 OR 3 VIEW Indication: Preoperative, rheumatoid arthritis. Comparison: Cervical spine radiograph 11/29/2017. Findings: Vertebral bodies and posterior elements are intact. Disc spaces are normal. Facets are un remarkable. Alignment is maintained. IMPRESSION: Normal cervical spine radiograph. Report Dictated By: Salazar Koehler at 08/21/2018 8:50 AM Report E-Signed By: Salazar Koehler at 08/21/2018 8:51 AM WSN:[id number]
--- NOTE | 2018-10-01 11:54 | LEVENE H&P ---
DATE OF ADMISSION: October 02, 2018 IDENTIFICATION/CHIEF COMPLAINT Denisse is a 42-year-old woman with a chief complaint of left knee pain. HISTORY OF PRESENT ILLNESS Patient has a longstanding history of knee arthritis progressively painful and debilitating and refractory to conservative care. Surgery is indicated to relieve symptoms after failure of nonoperative measures. PAST MEDICAL HISTORY Notable for history of deep venous thrombosis. She is factor V Leiden positive. She has been treated previously with Xarelto. She has Celiac disease. PAST SURGICAL HISTORY Notable for breast lumpectomy, which was benign. ALLERGIES Sulfa, Sudafed, gluten and soy. CURRENT MEDICATIONS Mobic 15 mg per day, gabapentin 300 mg t.i.d., mirtazapine 15 mg per day, folate 1 mg per day, venlafaxine 75 mg per day, methotrexate 20 mg weekly, aspirin 325 mg per day, Skelaxin 400 mg at bedtime p.r.n. FAMILY HISTORY Notable for multiple relatives with cancer including stomach and breast cancer. SOCIAL HISTORY Negative for tobacco and alcohol use. REVIEW OF SYSTEMS Negative. PHYSICAL EXAMINATION GENERAL: This is a healthy female. She appears her stated age. HEENT: Normocephalic, atraumatic. NECK: Supple. LUNGS: Clear. HEART: Regular. ABDOMEN: Soft. ORTHOPEDIC EXAMINATION Left knee is stiffened on range. Crepitus is noted. Effusion is present. Gross stability is good. Extensor function is intact. Radiographs demonstrate end-stage arthritis. ASSESSMENT Left knee end-stage degenerative joint disease, progressively painful and debilitating and refractory to conservative care. PLAN Per patient's request, we are going to proceed with total knee arthroplasty. The nature of the procedure, risks, benefits and the anticipated rehabilitative course were reviewed. Risks include but are not limited to , major medical or anesthetic complication, infection, neurovascular injury, blood transfusion, stiffness, scarring, fracture, tendon rupture, instability, implant loosening, migration or failure, persistent or recurrent pain, need for additional surgery and other unforeseen. She understands and wishes to proceed. A signed permit is placed in the chart. No guarantees are given or implied. [facility]
[2018-10-01 14:53] LABS: INR 1.02
[~2018-10-02] VITALS: Ht 162.6 cm; Wt 64.4 kg
[2018-10-02] VITALS (15 sets, daily range): BP systolic 84–109; BP diastolic 60–73
[~2018-10-02 01:48] MED LIST changes: +ACETAMINOPHEN 500 MG TAB PO ONE; +CELECOXIB 200 MG CAP PO ONE
[2018-10-02] MEDS ORDERED: MIDAZOLAM 2 MG/2 ML VIAL IVP PRN (09:00)
[2018-10-02] MEDS ORDERED: FAMOTIDINE 20 MG TAB PO ONE (09:00)
[2018-10-02] MEDS ORDERED: NORMOSOL R SOLN(*) 1000 ML BAG 1,000 ML IV PRN ×2 (09:00→13:10)
[2018-10-02] MEDS ORDERED: ACETAMINOPHEN 500 MG TAB PO ONE (09:00)
[2018-10-02] MEDS ORDERED: ceFAZolin(*) 1 GM VIAL 1 GM in NS(*) 0.9% 100 ML ADDVANT BAG 100 ML IVPB ONE (09:00)
[2018-10-02] MEDS ORDERED: LIDOCAINE/SOD BICARB 8.4% SYR ID ONE (09:00)
[2018-10-02] MEDS ORDERED: PROPOFOL EMUL(*) 10MG/ML 20 ML 20 ML ONE (09:28)
[2018-10-02] MEDS ORDERED: DEXAMETHASONE SOD PHOS 10MG/ML ONE (09:28)
[2018-10-02] MEDS ORDERED: fentaNYL CITR 100 MCG/2 ML AMP ONE (09:28)
[2018-10-02] MEDS ORDERED: ONDANSETRON 4 MG/2 ML VIAL ONE (09:28)
[2018-10-02] MEDS ORDERED: LIDOCAINE MPF 1% 5 ML VIAL ONE (09:28)
[2018-10-02] MEDS ORDERED: KETAMINE HCL-NS 50 MG/5 ML SYR ONE (09:28)
[2018-10-02] MEDS ORDERED: LIDOCAINE 2% IV 100 MG/5ML SYR ONE (09:29)
[2018-10-02] MEDS ORDERED: ROPIVACAINE/EPI/CLONIDINE/KET 50 ML SYRINGE INJ ONE (10:00)
[2018-10-02] MEDS ORDERED: TRANEXAMIC AC 1000 MG/10ML SDV 1,000 MG in DEXTROSE 5% 50 ML BAG 50 ML IV ONE (10:00)
[2018-10-02] MEDS ORDERED: VANCOMYCIN 1 GM VIAL ONE (10:13)
[2018-10-02] MEDS ORDERED: diphenhydrAMINE 25 MG CAP PO PRN (13:10)
[2018-10-02] MEDS ORDERED: MAGNESIUM HYDROXIDE* 30ML UDCP PO PRN (13:10)
[2018-10-02] MEDS ORDERED: ACETAMINOPHEN 325 MG TAB PO PRN (13:10)
[2018-10-02] MEDS ORDERED: ZOLPIDEM TARTRATE 5 MG TAB PO PRN (13:10)
[2018-10-02] MEDS ORDERED: diphenhydrAMINE 50 MG/ML VIAL IVP PRN (13:10)
[2018-10-02] MEDS ORDERED: PROMETHAZINE 25 MG/ML 1 ML AMP IVP PRN (13:10)
[2018-10-02] MEDS ORDERED: FLUSH 10 ML SYR IVP PRN (13:10)
[2018-10-02] MEDS ORDERED: BENZOCAINE/MENTHOL 1 EACH LOZG PO PRN (13:10)
[2018-10-02] MEDS ORDERED: BISACODYL 10 MG SUPP PR PRN (13:10)
--- NOTE | 2018-10-02 14:26 | RADIOLOGY IMAGING REPORT ---
FACILITY: [facility] [place] PATIENT NAME: Denisse Villasenor : 1975 MR: [id number] V: [id number] EXAM DATE: ORDERING PHYSICIAN: DAQUAN BECKFORD TECHNOLOGIST: Location: [facility] [place] Patient: Denisse Villasenor : 1975 Visit/Account:[id number] Date of Sevice: 10/02/2018 KNEE LIMITED LEFT HISTORY: S/P TOTAL KNEE ARTHROPLASTY Additional history: None COMPARISON: None. FINDINGS: Patient status post a total knee arthroplasty with patellar resurfacing. Hardware is unremarkable. There is air in the soft tissues tracking along the femur related to the surgery. The knee appears a ligned. IMPRESSION: Status post left total knee arthroplasty unremarkable in appearance. Report Dictated By: Thom Workman MD at 10/02/2018 2:14 PM Report E-Signed By: Thom Workman MD at 10/02/2018 2:20 PM WSN:NAHEED
[2018-10-02] MEDS: APAP/HYDROCODONE 325/7.5 TAB PO PRN ×2 (14:59→20:16)
--- NOTE | 2018-10-02 15:30 | Hospitalist Consultation ---
History of Present Illness Requesting Physician Dr. Jc Reason for Consult Medical Management Chief Complaint s/p left knee replacement History of Present Illness She was admitted s/p left knee replacement. It is reported the surgery went well and without complication. History Problems: (1) Factor V Leiden carrier Status: Chronic (2) Depression Status: Chronic (3) Rheumatoid arthritis Status: Chronic (4) Venous insufficiency of both lower extremities Status: Chronic Home Meds Active Scripts Folic Acid (FOLIC ACID) 1 Mg Tablet, 1 MG PO QDAY for 90 Days, #90 TAB 3 Refills Prov:BO CENTENO MD 09/18/18 Gabapentin (GABAPENTIN) 300 Mg Capsule, 1 CAP PO TID, #270 CAPSULE 3 Refills Prov:BO CENTENO MD 09/18/18 Methotrexate Sodium (METHOTREXATE) 2.5 Mg Tablet, 20 MG PO QWEEK for 28 Days, #24 TAB 3 Refills Prov:BO CENTENO MD 08/21/18 Metaxalone (Metaxalone) 400 Mg Tablet, 1 TAB PO QHS, #1 TAB Prov:BO CENTENO MD 08/21/18 Venlafaxine Hcl (VENLAFAXINE HCL ER) 75 Mg Cap.er.24h, 75 MG PO QDAY, #90 TAB 1 Refill Prov:BO CENTENO MD 06/12/18 Mirtazapine (MIRTAZAPINE) 15 Mg Tablet, 15 MG PO QHS, #90 TAB 2 Refills Prov:BO CENTENO MD 12/26/17 Meloxicam (MELOXICAM) 15 Mg Tablet, 15 MG PO QDAY PRN for PAIN, #90 TAB 1 Refill Prov:KATHLEEN BOOTH MD 11/22/17 Reported Medications Aspirin (ASPIRIN) 325 Mg Tablet, 325 MG PO QDAY, TAB 11/24/17 Discontinued Reported Medications Magnesium Glycinate (MAG GLYCINATE) 100 Mg Tablet, 400 MG PO BID 11/28/17 Allergies: Coded Allergies: Sulfa (Sulfonamide Antibiotics) (Verified Allergy, Intermediate, RASH, 09/26/18) pseudoephedrine (Verified Allergy, Intermediate, NAUSEA AND CONFUSION, 09/26/18) Milk Containing Products (Verified Allergy, Unknown, 09/26/18) almond (Verified Allergy, Unknown, 09/26/18) gluten (Verified Allergy, Unknown, 09/26/18) Ciliac Disease soy (Verified Allergy, Unknown, 09/26/18) Patient History: Alcoholism in maternal grandfather Drug abuse FH: depression MOTHER FH: diabetes mellitus MOTHER Hx Smoking: No Smoking Status: Never Smoker Caffeine Intake: Coffee, Tea Caffeine/Cups Per Day: 3 Hx Alcohol Use: Yes Hx Substance Use Disorder: No Social Drug Use: Never Review of Systems All Systems Reviewed/Normal: Yes, Except as Noted Exam Vital Signs Vital Signs Date Time Temp Pulse Resp B/P (MAP) Pulse Ox O2 Delivery O2 Flow Rate FiO2 10/02/18 14:00 78 16 100 10/02/18 09:29 98.2 108/73 (85) Room Air General Appearance: Alert, Awake, No Acute Distress, Afebrile Neuro: No Gross deficits Cardiovascular: Regular Rate and Rhythm Respiratory: No Respiratory Distress, Clear to Auscultation GI: Abd Soft and Non-Tender Extremities: Warm, Perfused; No Edema Psych: Alert & Oriented X3, Appropriate Mood & Affect Assessment and Plan Problems: (1) Status post left knee replacement Status: Acute Assessment & Plan: Followed by Dr. Jc. She will be placed on Xarelto secondary to Factor V Leiden. She personally has no history of DVT or PE. (2) Rheumatoid arthritis Status: Chronic Assessment & Plan: She is on chronic treatment with Methotrexate and Folic Acid. She stopped Methotrexate two weeks prior to surgery and will resume two weeks post-operatively with her RA doctor. (3) Depression Status: Chronic Assessment & Plan: She is on chronic treatment with Venlafaxine and Mirtazapine. Continue. (4) Factor V Leiden carrier Status: Chronic Assessment & Plan: See above. (5) Venous insufficiency of both lower extremities Status: Chronic Assessment & Plan: She has venous insufficiency. No history of DVT. Venous Thromboembolism Antithrombotics Is Pt On Any Antithrombotics?: No NASH WHEAT Oct 02, 2018 15:30
--- NOTE | 2018-10-02 15:57 | NUR ---
Physical Therapy Impression PT eval completed. Pt notes that she has recvd pain medication and would like to attempt standing and pivot to BSC. Pt is CGA/SBA for bed mobility and Min/CGA for sit to/from stand with FWW. Pt requires assist to complete pericare and clothing management due to decreased balance and sensation in LE's. Pt/CG then instructed in self progression of flexion with CPM unit and machine fit and adjusted for comfort. Physical Therapy Goals 1. Pt to be modified indep with bed mobility and supine to/from sit trnsfrs 2. Pt to be SBA/Mod indep with sit to/from stand transfers 3. Pt to be SBA/Mod Indep with ambulation x 100' with FWW 4. Pt to chelle up/down 4 steps with rail and SBA/CGA and least restrictive device. Patient's Goals
--- NOTE | 2018-10-02 16:37 | OPERATIVE REPORT 1 ---
EVENT DATE: October 02, 2018 SURGEON: Ayaan Jc MD ANESTHESIOLOGIST: Elvis Morgan MD ANESTHESIA: General plus spinal. PULP MILL OPERATOR: Phil Andrew PA-C PREOPERATIVE DIAGNOSIS Left knee end-stage rheumatoid arthritis. POSTOPERATIVE DIAGNOSIS Left knee end-stage rheumatoid arthritis. PROCEDURE PERFORMED Left total knee arthroplasty. ESTIMATED BLOOD LOSS Minimal. DRAINS None. SPECIMENS None. COMPLICATIONS None apparent. TOURNIQUET TIME 44 minutes. IMPLANTS USED [employer] knee system with a 3 left PS femur, 3 standard tibial baseplate, 9 mm thickness, 31 mm universal, symmetric, all-polyethylene patellar button, and an 11 mm PS tibial tray liner. Polyethylene is X3. INDICATIONS Denisse is a 42-year-old woman with end-stage rheumatoid arthritis in her knee with intractable pain and disability refractory to conservative measures. Surgery is indicated to relieve symptoms after failure of nonoperative treatment. DESCRIPTION OF PROCEDURE Patient is taken to the operating room and placed supine on the operating table. Spinal block is administered by the anesthesiologist. General anesthesia is induced. Antibiotics are administered IV. Left lower extremity is prepped and draped in the usual sterile fashion for orthopedic surgery. Limb is exsanguinated with an Esmarch bandage. Tourniquet is inflated to 250 mmHg. A midline longitudinal incision is made, carried down through the skin and subcutaneous tissue to the extensor mechanism. Full-thickness flaps are developed far enough medially to allow parapatellar arthrotomy be performed. Patella is everted. Knee is brought into flexed position. Fat pad, anterior horns of the menisci, and the cruciate ligaments are debrided. A subperiosteal capsule release is performed subperiosteally 1 cm around the upper plateau to start to balance the knee. A step drill is used to enter the distal femur. The 10-inch long alignment guide is used to engage the isthmus. Cut set for 6 degrees valgus relative to the anatomic axis. The 10 mm resection block is applied and pinned. Cuts made with an oscillating saw. AP sizing guide is applied and positioned for 3 degrees of external rotation relative to the posterior condyles. Size 3 is optimal without risk of notching. A four-in-one cutting block is applied. Anterior, posterior, posterior chamfer, and anterior chamfer cuts are made respectively. PS block is applied and centered. Medial and lateral bone is removed from the box. Trial femur has nice [id number] fit. Attention is turned to tibial preparation. Extramedullary guide is applied, positioned for varus, valgus, posterior slope, and rotation. This is set to resect 2 mm from the relatively deficient lateral tibial plateau. It is dropped down another millimeter or so to assure an adequate cut. Block is pinned. Extramedullary alignment check is made. Cut is made with an oscillating saw. No additional releases are required to balance the knee. Hypertrophic synovium is removed. The size 3 baseplate covers the tibia well without overhang. This is inserted along with the trial liner and the trial femur. The patella is taken from a starting thickness of 20 mm to a residual of 14 with a freehand cut. The 31 provides optimal bony coverage without soft tissue overhang. Lug holes are drilled. Patella tracks nicely with the no- touch technique. Final tibial preparation consists of assuring appropriate rotational and translational position of the component. Boss is reamed. Fin is punched. Surface is lavaged. A mix of methacrylate is made and all components cemented in a single stage. Once the cement is fully polymerized, tourniquet is deflated, and hemostasis is assured. The 11 tibial insert fills up the gap ideally, allowing the knee to drop to full extension without hyperextension, providing optimal soft tissue tension and stability. The joint surfaces are copiously lavaged. All loose debris is removed, and the actual liner is locked into the baseplate. Joint is reduced. Arthrotomy is closed in flexion with #2 Ethibond, subcutaneous tissue with 3-0 Vicryl, and skin with a ZipLine closure. Xeroform is applied for a dry, sterile dressing and compression wrap. Patient is awakened from anesthesia and taken to the recovery room having tolerated the procedure well. PLAN Plan is for standard TKA rehab protocol. [facility]
[2018-10-02] MEDS: DIAZEPAM 5 MG TAB PO PRN (18:35)
[2018-10-02] MEDS: ceFAZolin(*) 1 GM VIAL 1 GM in NS(*) 0.9% 100 ML ADDVANT BAG 100 ML IVPB SCH (18:55)
[2018-10-02] MEDS: MIRTAZAPINE 15 MG TAB PO SCH (20:16)
[2018-10-02] MEDS: GABAPENTIN 300 MG CAP PO SCH (20:16)
[2018-10-03] VITALS: BP 95/70
[2018-10-03 01:00] VITALS: BP 92/64
[2018-10-03] MEDS: APAP/HYDROCODONE 325/7.5 TAB PO PRN ×5 (02:08→20:54)
[2018-10-03] MEDS: ceFAZolin(*) 1 GM VIAL 1 GM in NS(*) 0.9% 100 ML ADDVANT BAG 100 ML IVPB SCH ×2 (03:02→11:34)
[2018-10-03 07:28] VITALS: BP 109/74
[2018-10-03] MEDS: RIVAROXABAN 10 MG TAB PO SCH (09:18)
[2018-10-03] MEDS: GABAPENTIN 300 MG CAP PO SCH ×3 (09:18→20:53)
[2018-10-03] MEDS: VENLAFAXINE XR 75 MG CAPCR PO SCH (09:18)
[2018-10-03 09:22] VITALS: BMI 24.4
[2018-10-03] MEDS: DIAZEPAM 5 MG TAB PO PRN (12:20)
--- NOTE | 2018-10-03 12:21 | Hospitalist Progress Note ---
Subjective Progress Notes Subjective She was admitted s/p knee replacement. She has no complaints this morning. She had no acute events overnight. Patient Complains of: Cardiovascular: No: Chest Pain Respiratory: No: Shortness of Breath Physical Exam Vital Signs Date Time Temp Pulse Resp B/P (MAP) Pulse Ox O2 Delivery O2 Flow Rate FiO2 10/03/18 07:28 97.9 81 109/74 (86) 96 Room Air 10/02/18 22:00 14 10/02/18 15:09 0.5 Intake and Output 10/03/18 01:00 Intake Total 5260 ml Output Total 100 ml Balance 5160 ml Intake Oral 1260 ml IV Total 2000 ml Other 2000 ml Output Estimated Blood Loss 100 ml # Voids 1 General Appearance: Alert, Awake, No Acute Distress, Afebrile Neuro: No Gross deficits Cardiovascular: Regular Rate and Rhythm Respiratory: No Respiratory Distress, Clear to Auscultation Psych: Alert & Oriented X3, Appropriate Mood & Affect Assessment and Plan Problems: (1) Status post left knee replacement Status: Acute Assessment & Plan: Followed by Dr. Jc. She will be placed on Xarelto secondary to Factor V Leiden. She personally has no history of DVT or PE. (2) Rheumatoid arthritis Status: Chronic Assessment & Plan: She is on chronic treatment with Methotrexate and Folic Acid. She stopped Methotrexate two weeks prior to surgery and will resume two weeks post-operatively with her Personnel Security Specialist. (3) Depression Status: Chronic Assessment & Plan: She is on chronic treatment with Venlafaxine and Mirtazapine. Continue. (4) Factor V Leiden carrier Status: Chronic Assessment & Plan: See above. (5) Venous insufficiency of both lower extremities Status: Chronic Assessment & Plan: She has venous insufficiency. No history of DVT. Exam Sepsis Risk: No Definite Risk NASH WHEAT DATABASE SUPPORT Oct 03, 2018 12:21
[2018-10-03] MEDS: MORPHINE 2 MG/ML SYR IVP PRN ×2 (14:32→16:37)
[2018-10-03 14:34] VITALS: BP 120/83
[2018-10-03 14:40] VITALS: Ht 162.6 cm; Wt 64.4 kg
--- NOTE | 2018-10-03 15:12 | NUR ---
Physical Therapy Impression Pt progressing well with use of 4WW for ambulation and SBA for gait and transfers. Pt can complete bed mobility and supine to/from sit with leg radiologic technician and modified indep, but to conserve energy and protect other joints, pt is encouraged to have spouse assist with supine to/from sit as needed initially. Physical Therapy Goals 1. Pt to be modified indep with bed mobility and supine to/from sit trnsfrs 2. Pt to be SBA/Mod indep with sit to/from stand transfers 3. Pt to be SBA/Mod Indep with ambulation x 100' with FWW 4. Pt to chelle up/down 4 steps with rail and SBA/CGA and least restrictive device. Patient's Goals
[2018-10-03] MEDS: METAXALONE 800 MG TAB PO PRN ×2 (16:37→22:39)
[2018-10-03 19:56] VITALS: BP 111/77
[2018-10-03] MEDS: MIRTAZAPINE 15 MG TAB PO SCH (20:53)
[2018-10-03 22:39] VITALS: BP 113/71
[2018-10-04 02:50] VITALS: BP 116/85
[2018-10-04] MEDS: APAP/HYDROCODONE 325/7.5 TAB PO PRN ×2 (02:59→08:24)
[2018-10-04] MEDS: METAXALONE 800 MG TAB PO PRN ×2 (04:42→10:49)
[2018-10-04] MEDS ORDERED: HYDR-389 PO (07:22)
[2018-10-04] MEDS ORDERED: RIVA10TA PO (07:23)
[2018-10-04] MEDS: VENLAFAXINE XR 75 MG CAPCR PO SCH (08:23)
[2018-10-04] MEDS: RIVAROXABAN 10 MG TAB PO SCH (08:23)
[2018-10-04] MEDS: GABAPENTIN 300 MG CAP PO SCH (08:24)
[2018-10-04 08:28] VITALS: BP 105/71
[2018-10-04] MEDS ORDERED: FERR324T16 PO (10:11)
--- NOTE | 2018-10-04 10:22 | Hospitalist Progress Note ---
Subjective Progress Notes Subjective She was admitted s/p knee replacement. She has no complaints this morning. She would like to go home today. Patient Complains of: Cardiovascular: No: Chest Pain Respiratory: No: Shortness of Breath Physical Exam Vital Signs Date Time Temp Pulse Resp B/P (MAP) Pulse Ox O2 Delivery O2 Flow Rate FiO2 10/04/18 08:28 98.0 105 16 105/71 (82) 92 Room Air 10/02/18 15:09 0.5 Intake and Output 10/04/18 07:00 Intake Total 1680 ml Balance 1680 ml Intake Oral 1680 ml # Voids 4 General Appearance: Alert, Awake, No Acute Distress, Afebrile Neuro: No Gross deficits Cardiovascular: Regular Rate and Rhythm Respiratory: No Respiratory Distress, Clear to Auscultation Psych: Alert & Oriented X3, Appropriate Mood & Affect Assessment and Plan Problems: (1) Status post left knee replacement Status: Acute Assessment & Plan: Followed by Dr. Jc. She will be placed on Xarelto secondary to Factor V Leiden. She personally has no history of DVT or PE. (2) Rheumatoid arthritis Status: Chronic Assessment & Plan: She is on chronic treatment with Methotrexate and Folic Acid. She stopped Methotrexate two weeks prior to surgery and will resume two weeks post-operatively with her Fabric Lay Out Worker. (3) Depression Status: Chronic Assessment & Plan: She is on chronic treatment with Venlafaxine and Mirtazapine. Continue. (4) Factor V Leiden carrier Status: Chronic Assessment & Plan: See above. (5) Venous insufficiency of both lower extremities Status: Chronic Assessment & Plan: She has venous insufficiency. No history of DVT. Exam Sepsis Risk: No Definite Risk NASH WHEAT TRACK GRINDER Oct 04, 2018 10:22
--- NOTE | 2018-10-04 11:18 | NUR ---
Physical Therapy Impression Pt met PT goals with up/down 4 steps with rail and SPC. Pt ambulating well with 4WW and demos ability to transfer and complete bed mobility with CGA/Min assist to conserve energy and protect other joints with RA. Physical Therapy Goals 1. Pt to be modified indep with bed mobility and supine to/from sit trnsfrs 2. Pt to be SBA/Mod indep with sit to/from stand transfers 3. Pt to be SBA/Mod Indep with ambulation x 100' with FWW 4. Pt to chelle up/down 4 steps with rail and SBA/CGA and least restrictive device. Patient's Goals
[2018-10-10] MEDS ORDERED: MIRT-22 PO (11:35)
== END 2018-10-04 07:20 | disposition home or self-care (01) ==
LOC: OR 01:48 → MED 14:25
PROVIDERS: ADMIT Orthopaedic Surgery; ATTEND Orthopaedic Surgery
DX: M06.862 Other specified rheumatoid arthritis, left knee (principal); I87.2 Venous insufficiency (chronic) (peripheral); D68.51 Activated protein C resistance; F32.9 Major depressive disorder, single episode, unspecified; Z79.82 Long term (current) use of aspirin; K90.0 Celiac disease; Z86.718 Personal history of other venous thrombosis and embolism
CPT/HCPCS: 27447; 36415; 72040; 73560; 81001; 81025; 82274; 85025; 85610; 86850; 86900; 86901; 87088; 93005; 97116; 97161; 97530; C1713; C1776; G0378; J0690; J1100; J2001; J2250; J2270; J2405; J2704; J3010; J3370; J3490; J7050; J7060; 82040; 82247; 82310; 82374; 82435; 82565; 82947; 84075; 84132; 84155; 84295; 84450; 84460; 84520

== ENCOUNTER → 2018-10-31 | Outpatient (CLI) | payer OTHER ==
[2018-10-03 14:40] VITALS: BMI 24.4
[~2018-10-31] MED LIST changes: -ACETAMINOPHEN 500 MG TAB PO ONE; -CELECOXIB 200 MG CAP PO ONE; +FERR324T16 PO; +HYDR-389 PO; +RIVA10TA PO
== END ==
LOC: LAB 14:54
PROVIDERS: ATTEND Internal Medicine Rheumatology
DX: M05.79 Rheumatoid arthritis with rheumatoid factor of multiple sites without organ or systems involvement (principal); Z79.899 Other long term (current) drug therapy
CPT/HCPCS: 36415; 82565; 84450; 85027; 85651; 86480; 86803; 87340

== ENCOUNTER 2018-12-06 11:15 | Outpatient (RCR) | payer OTHER ==
[2018-10-03 14:40] VITALS: BMI 24.4
--- NOTE | 2018-10-05 18:22 | PT INITIAL EVALUATION ---
MEDICAL DIAGNOSIS: Left TKA TREATMENT DIAGNOSIS: Left TKA DATE OF ONSET: 10/02/18 SUBJECTIVE: Denisse is a 42 year old female presenting to physical therapy following recent L TKA occurring 10/02/18. Pt reports surgery went well and was discharged from [facility] on 10/04/18. Since home pt has been using ice and CMP to maintain motion, as well as performing HEP given by impatient PT's. Pt reports weakness and pain surrounding the knee joint as rated at 5/10. Following completion of rehabilitation for this knee pt wishes to get TKA on the R side as well. REHAB PROBLEM LIST: Increased Pain Decreased ROM Impaired Bed Mobility Decreased Strength Impaired Transfers Decreased Endurance Decreased Balance Decreased Function Decreased ADL's Decreased Mobility Decreased Gait PREVIOUS MEDICAL HISTORY: See EMR OBJECTIVE: Incision is healing well without any redness, warmth, or drainage. Pt has minimal swelling or bruising present. ROM: Knee ROM (R, L): 142-0, 67-13 Strength: LE MMT (R, L): Hip flexion, 4/5, 2+/5, abd: 4+/5, 4/5, ext: 4/5, 3+/5. Knee: ext: 4/5, L not tested, flexion: 4-/5, L not tested. Ankle: DF: 5/5, 4+/5, PF: 4-/5, 3/5. Pt is unable to perform SLR at this time. Gait: Pt ambulates with a step through gait pattern with shortened strides B, on the L LE with knee slightly bent, using a 4WW for stability. ASSESSMENT: Denisse presents with signs and symptoms consistent with recent L TKA. Physical therapy is indicated to address the above listed deficits to improve pt function with ALD's. Short Term Goals In 3 weeks pt will improve L knee ROM to equal to that of the R knee for improved function with ADL's. In 4 weeks pt will be able to perform a SLR with no quad lag for improved function with ADL's. In 4 weeks pt will be able to ambulate 1 lap around the track without use of AD for improved function with ADL's. In 6 weeks pt will improve L LE strength to equal to the R LE for improved function with ADL's and daily mobility. In 6 weeks pt will be compliant with independent HEP for maintenance of strength and independent progression of function. Patient's Goals Improve motion and strength to return to full function. PLAN: Patient to be seen for Manual Therapy/STM/MET Strengthening/condition Ice/Heat Range of Motion Spinal Stabilization Ultrasound Stretching Iontophoresis Neuromuscular Re-ed Closed Chain Program Electrical Stim Posture/Body mechanics Gait Trg/Balance Trg Biofeedback Home Exercise Program Mech./Manual Traction Therapeutic Activities Pelvic Floor 3x/Week for 6 Weeks If you have any questions, comments, or concerns about this report or plan, please contact me at . Thank you, Samia Laguerre, PT, DPT, CLT MTDD
--- NOTE | 2018-10-31 07:27 | PT PLAN OF CARE ---
Physician: Ayaan Jc MD Patient is being seen: 2-3x/Week Therapist: Samia Laguerre, PT, DPT, CLT Medical Diagnosis: Left TKA Treatment Diagnosis: Left TKA Date of Onset: 10/02/18 Date of Initial Evaluation: 10/05/18 Date patient was last seen: 10/29/18 Number of treatments: 10 Number of cancellations/No shows: 0 INTERVENTIONS: Manual Therapy/STM/MET Strengthening/condition Ice/Heat Range of Motion Spinal Stabilization Ultrasound Stretching Iontophoresis Neuromuscular Re-ed Closed Chain Program Electrical Stim Posture/Body mechanics Gait Trg/Balance Trg Biofeedback Home Exercise Program Mech./Manual Traction Therapeutic Activities Pelvic Floor GOALS: In 3 weeks pt will improve L knee ROM to equal to that of the R knee for improved function with ADL's. MET In 4 weeks pt will be able to perform a SLR with no quad lag for improved function with ADL's. In Progress In 4 weeks pt will be able to ambulate 1 lap around the track without use of AD for improved function with ADL's. In Progress In 6 weeks pt will improve L LE strength to equal to the R LE for improved function with ADL's and daily mobility. In Progress In 6 weeks pt will be compliant with independent HEP for maintenance of strength and independent progression of function. In Progress PATIENT'S GOAL: Improve motion and strength to return to full function. Status of Patient's Goals: In Progress Patient Compliance: Excellent Prognosis: Good Reasons for continuing therapy: Denisse shows excellent progress with knee recovery with near full ROM at this time and progression towards strengthening. Lingering pain is present at the medial knee along the joint line though pt has discussed this pain with MD and will proceed with PT while healing continues to occur. Pt quad recovery remains slightly delayed with 3 degree lag, but continually shows progress. Hip and ankle strength remain good with continued strengthening. Further PT to continue to assist with quad recovery as well as improve strengthening of the knee and hip for full function with ADL's. Gait: Pt ambulates with SPC with good gait mechanics ROM: Knee ROM (R, L): 0-142, 2-0-140 Strength: LE MMT (R, L): Hip flexion, 4/5, 4-/5, abd: 4+/5, 4+/5, ext: 4/5, 4/5. Knee: ext: 4/5, L not tested, flexion: 4-/5, L not tested. Ankle: DF: 5/5, 4+/5, PF: 4-/5, 4-/5. SLR with 2-3 degree quad lag If you have any questions or concerns, please feel free to contact me at [phone]. Thank you, Samia Laguerre, PT, DPT, CLT MTDD
[~2018-12-06 11:15] MED LIST changes: +PNEI IM; +VARI50KI IM
--- NOTE | 2018-12-06 14:13 | PT PLAN OF CARE ---
Physician: Ayaan Jc MD Patient is being seen: 1-2x/Week Therapist: Samia Laguerre, PT, DPT, CLT Medical Diagnosis: Left TKA Treatment Diagnosis: Left TKA Date of Onset: 10/02/18 Date of Initial Evaluation: 10/05/18 Date patient was last seen: 12/06/18 Number of treatments: 16 Number of cancellations/No shows: 1 INTERVENTIONS: Manual Therapy/STM/MET Strengthening/condition Ice/Heat Range of Motion Spinal Stabilization Ultrasound Stretching Iontophoresis Neuromuscular Re-ed Closed Chain Program Electrical Stim Posture/Body mechanics Gait Trg/Balance Trg Biofeedback Home Exercise Program Mech./Manual Traction Therapeutic Activities Pelvic Floor GOALS: In 3 weeks pt will improve L knee ROM to equal to that of the R knee for improved function with ADL's. MET In 4 weeks pt will be able to perform a SLR with no quad lag for improved function with ADL's. MET In 4 weeks pt will be able to ambulate 1 lap around the track without use of AD for improved function with ADL's. MET In 6 weeks pt will improve L LE strength to equal to the R LE for improved function with ADL's and daily mobility. In Progress In 6 weeks pt will be compliant with independent HEP for maintenance of strength and independent progression of function. MET PATIENT'S GOAL: Improve motion and strength to return to full function. Status of Patient's Goals: 4/5 MET, 1/5 In Progress Patient Compliance: Excellent Prognosis: Good Reasons for discharge from therapy: Denisse is to discharge from physical therapy at this time secondary to completion of 4/5 functional goals. Pt has made significant progress in ROM, strength and mobility. ROM is now equal to the contralateral knee without pain and pt is able to ambulate without AD in the home and community. Pt remains to have lingering deficits in strength but is compliant with HEP and will continue to improve upon areas of weakness. Additionally balance remains slightly impaired on the L LE but is likely due to ankle dysfunction rather than knee instability. Upon discharge pt is to continue with strengthening HEP and seek further PT following likely surgery on R foot later this Summer. ROM: Knee ROM (R, L): 0-142, 1-0-142 Strength: LE MMT (R, L): Hip flexion, 5/5, 5-/5, abd: 4+/5, 4+/5, ext: 4/5, 4+/5. Knee: ext: 4+/5, 5-/5, flexion: 4/5, 4+/5. Ankle: DF: 5/5, 5/5, PF: 4/5, 4/5. If you have any questions or concerns, please feel free to contact me at [phone]. Thank you, Samia Laguerre, PT, DPT, CLT MTDD
[2018-12-17] MEDS ORDERED: VENL75CA4 PO (14:27)
== END 2019-01-03 ==
LOC: PT 11:15
PROVIDERS: ATTEND Orthopaedic Surgery
DX: Z47.1 Aftercare following joint replacement surgery (principal); Z96.652 Presence of left artificial knee joint
CPT/HCPCS: 97161

== ENCOUNTER → 2019-01-21 | Outpatient (CLI) | payer OTHER ==
[2018-10-03 14:40] VITALS: BMI 24.4
[2019-01-21 14:36] LABS: PLATELET COUNT, AUTOMATED 300 K/uL (150-450)
== END ==
LOC: LAB 14:23
PROVIDERS: ATTEND Physician Assistant
DX: M06.9 Rheumatoid arthritis, unspecified (principal); Z79.899 Other long term (current) drug therapy
CPT/HCPCS: 36415; 82565; 84450; 85025; 85651